=== PATIENT | female | born 1970 | race Caucasian/White ===

== ENCOUNTER → 2016-11-03 | Outpatient (CLI) | payer OTHER ==
[~2016-11-03] MED LIST: CPR500T; [UNRECOGNIZED DRUG - OTHER]
--- NOTE | 2016-11-06 19:19 | Diagnostic Imaging Report ---
EXAM: Digital mammogram screening with tomosynthesis. COMPARISON: The study was compared to the prior exams of 10/20/15, 09/07/14 and 07/04/13. At this time there are no current complaints. There are bilateral breast implants in place. The implants appear similar to the prior exam. There is no sign of an extracapsular rupture of either implant. There are scattered fibroglandular densities in both breasts which could obscure a lesion. When compared to the previous study, it is does not appear to have been any significant change. There is no primary or secondary sign of malignancy noted. The 3-D tomographic views were also unremarkable for malignancy. IMPRESSION: 1. There is no evidence of malignancy. 2. The implants appear stable. There is no sign of an extracapsular rupture of either implant. ACR BI-RADS Category 1: Negative. Result letter will be mailed to the patient. Note: At least 10% of breast cancer is not imaged by mammography. Dictated by: Dictated on workstation # [id number]
== END ==
LOC: RAD 10:35
PROVIDERS: ATTEND Nurse Practitioner
DX: Z12.31 Encounter for screening mammogram for malignant neoplasm of breast (principal)
CPT/HCPCS: 77067

== ENCOUNTER 2018-04-30 14:37 | Outpatient (CLI) | payer OTHER ==
[~2018-04-30] VITALS: Ht 172.7 cm; Wt 79.4 kg
[~2018-04-30 14:37] MED LIST changes: +AZEL23SP NS; +LEVO5TAB28 PO
== END 2018-04-30 14:42 | disposition home or self-care (01) ==
LOC: PREOP 14:37
PROVIDERS: ATTEND Surgery
DX: Z01.818 Encounter for other preprocedural examination (principal)

== ENCOUNTER 2018-05-06 07:49 | Day surgery (SDC) | payer OTHER ==
[~2018-05-06] VITALS: Ht 172.7 cm; Wt 79.4 kg
--- OUTSIDE RECORDS SUMMARY | 2018-05-06 07:53 | XMS REPORT ---
Author Author LENORA HARMON Organization [employer] Address Unknown Phone Unavailable Care Team Providers Care Brick Pitcher Name Role Phone LENORA HARMON CP Unavailable Allergies, Adverse Reactions, Alerts Substance Reaction Event Type PredniSONE (Nikko) euphoria Drug Allergy Problems Problem Type Condition Code Onset Dates Condition Status Problem Need for prophylactic vaccination and inoculation, Influenza V04.81 Active Problem Acute upper respiratory infections of unspecified site 465.9 Active Problem Acute frontal sinusitis, recurrence not specified J01.10 Active Assessment Sinusitis J32.9 Active Assessment Acute frontal sinusitis, recurrence not specified J01.10 Active Problem Cough 786.2 Active Problem Acute sinusitis, unspecified 461.9 Active Medications Medication Code System Code Instructions Start Date End Date Status Dosage Ceftin [facility] [place] [address]-86 250 MG Orally Twice a day May 06, 2015 May 16, 2015 1 tablet Procedures Procedure Coding System Code Date THER/PROPH/DIAG INJ, SC/IM CPT-4 36134 May 06, 2015 Office Visit, Est Pt., Level 4 CPT-4 16156 May 06, 2015 DEPO MEDROL 80 MG/ML CPT-4 J1040 May 06, 2015 Vital Signs Date/Time: May 06, 2015 Temperature 98.4 F Weight 169.2 lbs Height 65 in BMI 28.15 Index Blood Pressure Diastolic 80 mmHg Blood Pressure Systolic 124 mmHg Cardiac Monitoring Heart Rate 72 bpm Results No Known Results Summary Purpose [employer] Submission
--- OUTSIDE RECORDS SUMMARY | 2018-05-06 07:53 | XMS REPORT ---
Author Author LENORA HARMON [facility] [employer] Address Unknown Phone Unavailable Care Team Providers Care Cane Flume Chute Operator Name Role Phone LENORA HARMON Unavailable Allergies No Known Allergies Problems Problem Type Condition Code Onset Dates Condition Status Problem Need for prophylactic vaccination and inoculation, Influenza V04.81 Active Problem Acute upper respiratory infections of unspecified site 465.9 Active Problem Acute frontal sinusitis, recurrence not specified J01.10 Active Assessment Encounter for immunization Z23 Active Problem Cough 786.2 Active Problem Acute sinusitis, unspecified 461.9 Active Medications No Known Medications Procedures Procedure Coding System Code Date SINGLE IMMUNIZATION ADMIN CPT-4 55766 Dec 27, 2015 FLUARIX QUAD P-FREE 3 AND UP .50 2015 CPT-4 92565 Dec 27, 2015 Results No Known Results Immunizations Vaccine Administration Date FLUARIX QUAD P-FREE 3 AND UP .50 2015Dec 27, 2015 Summary Purpose [employer] Submission
--- OUTSIDE RECORDS SUMMARY | 2018-05-06 07:53 | XMS REPORT ---
Author Author LENORA HARMON Organization [employer] Address Unknown Phone Unavailable Care Team Providers Care Insole Stiffener Name Role Phone LENORA HARMON CP Unavailable Allergies No Known Allergies Problems Problem Type Condition Code Onset Dates Condition Status Problem Acute upper respiratory infections of unspecified site 465.9 Active Problem Cough 786.2 Active Problem Need for prophylactic vaccination and inoculation, Influenza V04.81 Active Problem Acute sinusitis, unspecified 461.9 Active Assessment Encounter for immunization Z23 Active Medications No Known Medications Procedures Procedure Coding System Code Date SINGLE IMMUNIZATION ADMIN CPT-4 76349 Jan 11, 2015 TDAP (BOOSTRIX) CPT-4 58871 Jan 11, 2015 Results No Known Results Immunizations Vaccine Administration Date TDAP (BOOSTRIX) Jan 11, 2015 Summary Purpose [employer]ClinicalWorks Submission
--- OUTSIDE RECORDS SUMMARY | 2018-05-06 07:53 | XMS REPORT | Continuity of Care Document ---
Author Author [facility] Address Unknown Phone Unavailable Allergies Active Description Code Type Severity Reaction Onset Reported/Identified Relationship to Patient Clinical Status Yes cortisone [id number] Drug Allergy Unknown N/A 08/03/2006 Yes hydrocortisone [id number] Drug Allergy Mild N/A 09/27/2008 Yes cortisone [id number] Drug Allergy Mild "LOOPY" 04/30/2018 Yes hydrocortisone [id number] Drug Allergy Mild MAKES HER "LOOP 04/30/2018 Medications There is no data. Problems Date Dx Coded Attending Type Code Diagnosis Diagnosed By 01/27/2012 V04.81 FLU DX (3 YRS AND ABOVE, IM) 01/27/2012 ROMIE NUNEZ DO V04.81 FLU DX (3 YRS AND ABOVE, IM) 01/27/2012 PREETIE ATOMIC WELDER, LENORA A V04.81 FLU DX (3 YRS AND ABOVE, IM) 01/27/2012 RAJOTTE ATOMIC WELDER, LENORA A V04.81 FLU DX (3 YRS AND ABOVE, IM) 09/19/2012 PRAKASH GARZA [facility] Ot 719.54 JT STIFFNESS NEC-HAND 09/19/2012 PRAKASH GARZA [employer] Ot V54.19 AFTERCARE HEALING TRAUMATIC FX OTHER BON 09/19/2012 PRAKASH GARZA MANAGER [employer] Ot V57.21 ENCOUNTER FOR OCCUPATIONAL THERAPY 01/10/2013 ANA LAURENT MD Ot V54.19 AFTERCARE HEALING TRAUMATIC FX OTHER BON 01/10/2013 ANA LAURENT MD Ot V57.21 ENCOUNTER FOR OCCUPATIONAL THERAPY 02/03/2013 RAJOTTE ATOMIC WELDER, LENORA A 465.9 UPPER RESPIRATORY INFECTION 02/03/2013 RAJOTTE ATOMIC WELDER, LENORA A 786.2 COUGH 02/03/2013 RAJOTTE ATOMIC WELDER, LENORA A 465.9 UPPER RESPIRATORY INFECTION 02/03/2013 RAJOTTE ATOMIC WELDER, LENORA A 786.2 COUGH 05/20/2013 ANA LAURENT MD Ot V57.21 ENCOUNTER FOR OCCUPATIONAL THERAPY 05/20/2013 MEHRAN SHAW, ANA Gaffney Ot V58.78 AFTERCARE POST SURGERY MUSCULOSKELETAL S 07/10/2013 MEHRAN SHAW, ANA Gaffney Ot V57.21 ENCOUNTER FOR OCCUPATIONAL THERAPY 07/10/2013 MEHRAN SHAW, ANA Gaffney Ot V58.78 AFTERCARE POST SURGERY MUSCULOSKELETAL S 09/07/2014 Ot V76.12 09/07/2014 QUICK, JOSE ALFREDO Peterson [employer]NAGER [employer] Ot V72.31 09/07/2014 QUICK, JOSE ALFREDO Peterson MANAGER MARKETING [employer]ICATION[employer] Ot V76.12 10/12/2014 Ot V76.12 10/12/2014 QUICK, JOSE ALFREDO W MANAGER MARK[employer]ICATION[employer] Ot V72.31 10/12/2014 QUICK, JOSE ALFREDO Peterson MANAGER MARKETING [employer]ICATION[employer] Ot V76.12 10/12/2014 GARZA DOEVIE C Ot V76.12 10/12/2014 GARZA DO EVIE C Ot V76.12 10/20/2015 Ot V76.12 OTH SCREEN MAMMO-MALIGN NEOPLASM OF SOTERO 10/20/2015 JOSE ALFREDO WILLIS MANAGER [employer] Ot V72.31 ROUTINE GYNECOLOGICAL EXAMINATION 10/20/2015 JOSE ALFREDO WILLIS MANAGER [employer] Ot V76.12 OTH SCREEN MAMMO-MALIGN NEOPLASM OF SOTERO 10/20/2015 GARZA DO EVIE C Ot V76.12 OTH SCREEN MAMMO-MALIGN NEOPLASM OF SOTERO 10/21/2015 JOSE ALFREDO WILLIS MANAGER MARKETING COMM[employer]ICATION[employer] Ot Z12.31 ENCNTR SCREEN MAMMOGRAM FOR MALIGNANT NE 11/03/2016 Ot V76.12 OTH SCREEN MAMMO-MALIGN NEOPLASM OF SOTERO 11/03/2016 JOSE ALFREDO WILLIS MANAGER MARK[employer]ICATION[employer] Ot V72.31 ROUTINE GYNECOLOGICAL EXAMINATION 11/03/2016 JOSE ALFREDO WILLIS MANAGER MARK[employer]ING [employer]ICATION[employer] Ot V76.12 OTH SCREEN MAMMO-MALIGN NEOPLASM OF SOTERO 11/03/2016 GARZA DOTYRONA C Ot V76.12 OTH SCREEN MAMMO-MALIGN NEOPLASM OF SOTERO 11/03/2016 JOSE ALFREDO WILLIS MANAGER MARKETING [employer]ICATION[employer] Ot Z12.31 ENCNTR SCREEN MAMMOGRAM FOR MALIGNANT NE 11/23/2017 JOSE ALFREDO WILLIS MANAGER MARK[employer]ING [employer]ICATION[employer] Ot Z12.31 ENCNTR SCREEN MAMMOGRAM FOR MALIGNANT NE 04/30/2018 MATTHEW SHAW, AMARILYS Griffin Ot Z01.818 ENCOUNTER FOR OTHER PREPROCEDURAL EXAMIN 04/30/2018 MATTHEW SHAW, AMARILYS Griffin Ot Z01.818 ENCOUNTER FOR OTHER PREPROCEDURAL EXAMIN 04/30/2018 MATTHEW SHAW, AMARILYS Griffin Ot Z01.818 ENCOUNTER FOR OTHER PREPROCEDURAL EXAMIN 04/30/2018 MATTHEW SHAW, AMARILYS Griffin Ot Z01.818 ENCOUNTER FOR OTHER PREPROCEDURAL EXAMIN 05/01/2018 MATTHEW SHAW, AMARILYS Griffin Ot Z01.818 ENCOUNTER FOR OTHER PREPROCEDURAL EXAMIN Procedures Code Description [place] [address] OXIM[employer] 02/03/2013 Results There is no data. Encounters ACCT No. Visit Date/Time Discharge Status Pt. Type Provider Facility Loc./Unit Complaint [id number] 01/19/2014 09:01:00 01/19/2014 23:59:59 CLS Outpatient LENORA HARMON APRN [id number] 02/03/2013 08:32:00 02/03/2013 23:59:59 CLS Outpatient LENORA HARMON APRN [id number] 01/11/2013 10:05:00 01/11/2013 23:59:59 [place] [id number] 01/27/2012 09:37:00 01/27/2012 23:59:59 CLS Outpatient [id number] 04/30/2018 14:37:00 04/30/2018 14:42:00 DIS Outpatient AMARILYS CASTRO MD [facility] PREOP COLONOSCOPY [id number] 11/22/2017 14:42:00 11/22/2017 23:59:59 CLS Outpatient JOSE ALFREDO WILLIS [facility] RAD SCREENING MAMMO [id number] 11/03/2016 10:35:00 11/03/2016 23:59:59 CLS Outpatient JOSE ALFREDO WILLIS [facility] RAD Z01.419 [id number] 10/20/2015 10:56:00 10/20/2015 23:59:59 CLS Outpatient JOSE ALFREDO WILLIS [facility] RAD SCREENING [id number] 09/07/2014 10:53:00 09/07/2014 23:59:59 CLS Outpatient EVIE GARZA DO [facility] RAD SCREENING [id number] 06/03/2013 15:40:00 07/10/2013 16:23:00 DIS Outpatient ANA LAURENT MD [facility] REHAB S/P R RING FINGER PIP CONTRACTURE RELEASE [id number] 07/04/2013 07:13:00 07/04/2013 23:59:59 CLS Outpatient JOSE ALFREDO WILLIS [facility] RAD SCREENING [id number] 05/20/2013 15:45:00 05/20/2013 00:01:00 DIS Outpatient ANA LAURENT MD [facility] REHAB S/P R RING FINGER PIP CONTRACTURE RELEASE [id number] 12/20/2012 14:30:00 01/10/2013 12:43:00 DIS Outpatient ANA LAURENT MD [facility] REHAB R RING FINGER METACARPAL FX W RESIDUAL STIFFNESS [id number] 08/29/2012 13:00:00 09/19/2012 10:59:00 DIS Outpatient PRAKASH GARZA [facility] REHAB R RING FINGER METACARPAL FX W RESIDUAL STIFFNESS [id number] 08/17/2012 18:08:00 08/17/2012 23:59:59 CLS Outpatient [id number] 05/06/2018 08:00:00 ZULEIMA CASTRO MD, AMARILYS Griffin [facility] ENDO DIARRHEA [id number] 04/26/2012 14:35:00 Document Registration 05/08/18 03/05/2018 07:58:05 03/05/2018 23:59:59 CLS Outpatient Daily Gaytan [facility] 09/07/2014 10:54:01 ACT Document Registration
--- OUTSIDE RECORDS SUMMARY | 2018-05-06 07:53 | XMS REPORT ---
Author Author ROMIE NUNEZ [facility] Address [address] [place] [address] Care Team Providers Care Air Quality Consultant Name Role Phone ROMIE NUNEZ Unavailable PROBLEMS Type Condition ICD9-CM Code [id number] Code Onset Dates Condition Status SNOMED Code Problem Acute frontal sinusitis, recurrence not specified J01.10 Active 92809756 Problem Acute sinusitis, unspecified 461.9 Active 90142226 Problem Need for prophylactic vaccination and inoculation, Influenza V04.81 Active 738518029 Problem Acute upper respiratory infections of unspecified site 465.9 Active 32520238 Problem Cough 786.2 Active 61779065 ALLERGIES No Information ENCOUNTERS Encounter Location Date Diagnosis [facility] [id number] [place] [address] [id number] Jan, Acute non-recurrent pansinusitis J01.40 [facility] [address] [id number] Jan, Acute recurrent maxillary sinusitis J01.01 [facility] [id number] [place] [address] [phone] [phone] Dec, Encounter for immunization Z23 [facility] [address] [id number] Dec, Encounter for immunization Z23 [facility] [id number] [place] [address] [id number] Apr, Sinusitis J32.9 and Acute frontal sinusitis, recurrence not specified J01.10 [facility] [address] [address] Dec, Encounter for immunization Z23 [facility] [id number] [place] [address] [phone] Dec, Encounter for immunization Z23 [facility] [address] [place] [address] Jun, [facility] [id number] [phone] Jun, [facility] [address] [place] [address] Apr, [facility] [id number] [place] [address] Apr, [facility] [id number] [place] [address]- [phone] Dec, [facility] [id number] [place] [address] [phone]- [address] Dec, [facility] [id number] [address] Jan, [facility] [id number] [place] [address] Jan, [facility] [address], [place] [address] Dec, [facility] [address] [place] [address] Dec, [facility] [address] [place] [address] Jan, [facility] [id number] [address] Jan, IMMUNIZATIONS Vaccine Route Administration Date Status FLUARIX QUAD (3 AND UP) 2016 IM Intramuscular Jan 15, 2017 Administered SOCIAL HISTORY Never Assessed REASON FOR VISIT flu shot JStrasserRN PLAN OF CARE VITAL SIGNS MEDICATIONS No Known Medications RESULTS No Results PROCEDURES Procedure Date Ordered Result Body Site FLUARIX QUAD (3 & UP)--2014Jan 15, 2017 SINGLE IMMUNIZATION ADMIN Jan 15, 2017 INSTRUCTIONS MEDICATIONS ADMINISTERED No Known Medications MEDICAL (GENERAL) HISTORY Type Description Date Surgical History right ring finger x2
--- OUTSIDE RECORDS SUMMARY | 2018-05-06 07:53 | XMS REPORT ---
Author Author ROMIE NUNEZ [facility] Address [address] [place] [address] Care Team Providers Care Shell Mold Bonding Machine Operator Name Role Phone ROMIE NUNEZ Unavailable PROBLEMS Type Condition ICD9-CM Code OZA40-HK Code Onset Dates Condition Status SNOMED Code Problem Acute frontal sinusitis, recurrence not specified J01.10 Active 35953461 Problem Acute sinusitis, unspecified 461.9 Active 28963600 Problem Need for prophylactic vaccination and inoculation, Influenza V04.81 Active 322815344 Problem Acute upper respiratory infections of unspecified site 465.9 Active 26295843 Problem Cough 786.2 Active 71558008 ALLERGIES No Information ENCOUNTERS Encounter Location Date Diagnosis [facility] [id number] [place] [address] [phone] Dec, Encounter for immunization Z23 [facility] [id number] [place] [address] [id number] Jan, Acute non-recurrent pansinusitis J01.40 [facility] [id number] [place] [address] [id number] Jan, Acute recurrent maxillary sinusitis J01.01 [facility] [id number] [place] [address] [phone] [phone] Dec, Encounter for immunization Z23 [facility] [id number] [place] [address] [id number] Dec, Encounter for immunization Z23 [facility] [id number] [place] [address] [id number] Apr, Sinusitis J32.9 and Acute frontal sinusitis, recurrence not specified J01.10 [facility] [id number] [place] [address] [id number]- [address]268 Dec, Encounter for immunization Z23 [facility] [address], [place] [address] Dec, Encounter for immunization Z23 [facility] [address] [address] Jun, [facility] [address], [place] [address] Jun, [facility] [address], [place] [address] Apr, [facility] [address], [place] [address] Apr, [facility] [address], [place] [address] Dec, [facility] [address], [place] [address] Dec, [facility] [address] [place] [address] Jan, [facility] [address], [place] [address] Jan, [facility] [address], [place] [address] Dec, [facility] [id number] [address] Dec, [facility] [id number], [place] [address] Jan, [facility] [id number] [address] Jan, IMMUNIZATIONS Vaccine Route Administration Date Status FLULAVAL QUAD 0.5ML (6 MO & UP) 2018 IM Intramuscular Jan 14, 2018 Administered SOCIAL HISTORY Never Assessed REASON FOR VISIT Flu shot PLAN OF CARE VITAL SIGNS MEDICATIONS Unknown Medications RESULTS No Results PROCEDURES Procedure Date Ordered Result Body Site FLULAVAL QUAD 0.5ML (6 MO AND UP) 2018 Jan 14, 2018 SINGLE IMMUNIZATION ADMIN Jan 14, 2018 INSTRUCTIONS MEDICATIONS ADMINISTERED No Known Medications MEDICAL (GENERAL) HISTORY Type Description Date Surgical History right ring finger x2
[2018-05-06] MEDS ORDERED: NS IV 500 ML 500 ML ONE (08:03)
[2018-05-06] MEDS ORDERED: NS IV 500 ML 500 ML IV PRN (08:37)
[2018-05-06 08:40] VITALS: BP 111/76
[2018-05-06] MEDS ORDERED: MIDAZOLAM 2 MG/2 ML (VERSED) VIAL IVP ONE (08:45)
[2018-05-06] MEDS ORDERED: fentaNYL INJECTION 100 MCG/2 ML AMP IVP ONE (08:45)
[2018-05-06] MEDS ORDERED: MIDAZOLAM 2 MG/2 ML (VERSED) VIAL ONE ×4 (08:49→09:58)
[2018-05-06] MEDS ORDERED: fentaNYL INJECTION 100 MCG/2 ML AMP ONE (08:50)
--- NOTE | 2018-05-06 09:38 | Conscious Sedation/ASA ---
Conscious Sedation Pre-Proced Time 09:38 ASA Score 2 For ASA 3 and 4: Consider anesthesia and medical clearance. Also, for patients with a history of failed moderate sedation consider anesthesia. Airway Lungs Heart ASA score ASA 1: a normal healthy patient ASA 2: a patient with a mild systemic disease (mid diabetes, controlled hypertension, obesity ASA 3: a patient with a severe systemic disease that limits activity (angina , COPD, prior Myocardial infarction) ASA 4: a patient with an incapacitating disease that is a constant threat to life (CHF, renal failure) ASA 5: a moribund patient not expected to survive 24 hrs. (ruptured aneurysm) ASA 6: a declared brain- patient whose organs are being harvested. For emergent operations, add the letter E after the classification Mallampati Classification Grade 1 Sedation Plan Discussed options with patient/fam The patient is an appropriate candidate to undergo the planned procedure, sedation, and anesthesia. The patient immediately re-assessed prior to indication. AMARILYS CASTRO MD May 06, 2018 09:38
--- NOTE | 2018-05-06 09:38 | History & Physicial ---
History of Present Illness History of Present Illness Reason for visit/HPI to undergo colonoscopy to investigate ongoing diarrhea Date of Admission 05/06/18 Date Seen by a Provider: May 06, 2018 Time Seen by a Provider: 09:37 I consulted on this patient on 05/06/18 09:36 Attending Physician Amarilys Bonilla MD Admitting Physician Daily Gaytan DO Consult Allergies and Home Medications Allergies Coded Allergies: cortisone (Verified Allergy, Mild, "LOOPY", 04/30/18) hydrocortisone (Unverified Allergy, Mild, MAKES HER "LOOPY", 04/30/18) Home Medications Azelastine/Fluticasone 23 Gm [place].pump, 23 GM NS BID, (Reported) Levocetirizine Dihydrochloride 5 Mg Tablet, 5 MG PO DAILY, (Reported) Patient Home Medication List Home Medication List Reviewed: Yes Past Yxhwigu-Hntpno-Xdbdzv Hx Patient Social History Alcohol Use: Denies Use Recreational Drug Use: No Smoking Status: Never a Smoker 2nd Hand Smoke Exposure: No Recent Foreign Travel: No Contact w/other who traveled: No Recent Hopitalizations: No Immunizations Up To Date Date of Influenza Vaccine: Dec 31, 2017 Seasonal Allergies Seasonal Allergies: Yes Surgeries Yes (R HAND X2) Section Respiratory No Cardiovascular No Neurological No Reproductive System Sexually Transmitted Disease: No HIV/AIDS: No Female Reproductive Disorders: Denies Genitourinary No Gastrointestinal Yes Chronic Diarrhea Musculoskeletal No Endocrine History of Endocrine Disorders: No HEENT History of HEENT Disorders: Yes (GLASSES/CONTACTS) Loss of Vision: Bilateral Hearing Impairment: Denies Cancer No Psychosocial History of Psychiatric Problem: No Integumentary History of Skin or Integumenta: No Blood Transfusions History of Blood Disorders: No Adverse Reaction to a Blood Tr: No (N/A) Review of Systems Constitutional: no symptoms reported EENTM: no symptoms reported Cardiovascular: no symptoms reported Gastrointestinal: see HPI Genitourinary: no symptoms reported Musculoskeletal: no symptoms reported Skin: no symptoms reported Psychiatric/Neurological: No Symptoms Reported Physical Exam Vital Signs Vital Signs - First Documented 05/06/18 08:40 Temp 99.1 Pulse 73 Resp 18 B/P (MAP) 111/76 (88) Pulse Ox 98 O2 Delivery Room Air Capillary Refill : Height, Weight, BMI Height: 5'8.00" Weight: 175lbs. 0.0oz. 79.505942xe; 26.6 BMI Method: General Appearance: No Apparent Distress Neck: Normal Inspection Respiratory: Lungs Clear Cardiovascular: Regular Rate, Rhythm Gastrointestinal: Non Tender, Soft Rectal: Deferred Neurologic/Psychiatric: Alert, Oriented x3 Skin: Warm/Dry Assessment/Plan Assessment and Plan lady with ongoing diarrhea. For colonoscopy. Admission Diagnosis Admission Status: Other (Outpt Proc) AMARILYS BONILLA MD May 06, 2018 09:37
--- NOTE | 2018-05-06 10:11 | Endo Procedure Record ---
Endo Procedure Report Date of Procedure Last Colonoscopy: Yes (2008) May 06, 2018 Surgeon (s) AMARILYS CASTRO MD Post Procedure/Op Diagnosis sigmoid diverticulosis Procedure Performed colonoscopy to cecum Description of Procedure Anesthesia Type: Conscious Sedation Specimen(s) collected/removed None Description of the Procedure Indication for the procedure: This lady came in for colonoscopy to evaluate long -standing, nonbloody diarrhea. She denied any relevant family history of colon cancer. Informed consent was obtained after reviewing the procedure in detail. Description of the procedure: She was placed in left lateral decubitus position and her vital signs were monitored. Conscious sedation was achieved using Versed and fentanyl. Digital rectal examination was unremarkable. The colonoscope was then introduced into the rectum and advanced all the way up to the cecum. The quality about progression wound was excellent. The scope was then withdrawn slowly and the mucosa examined in a systematic fashion. Findings: Sigmoid diverticulosis. There was no active inflammation. She tolerated it well and was taken back to the nursing area in a stable condition. Impression: Chronic diarrhea. Uncomplicated among diverticulosis. Recommend screening exam in 10 years. Copy Copies To 1: RAMO RICHARDSON XAVIER M MD May 06, 2018 10:11
--- NOTE | 2018-05-06 10:12 | Discharge Inst-Simple/Standard ---
Discharge Inst-Standard Discharge Medications New, Converted or Re-Newed RX: Other Patient Instructions/Follow Up Plan of Care/Instructions/FU: follow-up with Dr. Gaytan. Screening colonoscopy in 10 years Activity as Tolerated: Yes Discharge Diet: No Restrictions AMARILYS CASTRO MD May 06, 2018 10:12
[2018-05-06 10:25] VITALS: BP 103/59
[2018-05-06 10:55] VITALS: BP 100/57
[2018-05-06 11:03] VITALS: BP 100/57
== END 2018-05-06 11:03 | disposition home or self-care (01) ==
LOC: ENDO 07:49
PROVIDERS: ATTEND Surgery
DX: K57.30 Diverticulosis of large intestine without perforation or abscess without bleeding (principal); K52.9 Noninfective gastroenteritis and colitis, unspecified
CPT/HCPCS: 84703

== ENCOUNTER → 2018-12-11 | Outpatient (CLI) | payer OTHER ==
--- NOTE | 2018-12-11 16:20 | Diagnostic Imaging Report ---
INDICATION: Routine screening. COMPARISON: 11/22/2017 and 11/03/2016. TECHNIQUE: 2D and 3D bilateral screening mammography was performed with CAD. FINDINGS: Bilateral subpectoral breast implants are again noted. The implant contours remain smooth. Scattered fibroglandular densities in both breasts are noted. No mass or malignant appearing microcalcifications are seen. The axillae are unremarkable. IMPRESSION: No mammographic features suspicious for malignancy are identified. ACR BI-RADS Category 2: Benign findings. Result letter will be mailed to the patient. Note: At least 10% of breast cancer is not imaged by mammography. Dictated by: Dictated on workstation # [id number]
== END ==
LOC: RAD 14:52
PROVIDERS: ATTEND Obstetrics & Gynecology
DX: Z12.31 Encounter for screening mammogram for malignant neoplasm of breast (principal)
CPT/HCPCS: 77067

== ENCOUNTER 2019-04-28 12:45 | Observation (INO) | payer OTHER ==
[~2019-04-28] VITALS: Ht 170.8 cm; Wt 8.5 kg
--- NOTE | 2019-04-28 13:29 | NUR ---
Rn called into pts room by . Pts states she is getting very anxious. Vital signs taken Hr:98, BP 156/92, o2:100% on RA, rr:26. Pt very anxious and states this is how she was feeling at school.
[2019-04-28 15:56] LABS: BASOPHILS % (AUTO) 0 % (0-10); EOSINOPHILS % (AUTO) 0 % (0-10); HEMATOCRIT 38 % (35-52); LYMPHOCYTES # (AUTO) 1.5 X 10^3 (1.0-4.0); LYMPHOCYTES % (AUTO) 23 % (12-44); MEAN CORPUSCULAR HEMOGLOBIN 29 PG (25-34); MEAN CORPUSCULAR HGB CONC 34 G/DL (32-36); MEAN CORPUSCULAR VOLUME 85 FL (80-99); MEAN PLATELET VOLUME 11.5 FL (7.4-10.4); MONOCYTES # (AUTO) 0.3 X 10^3 (0.0-1.0); MONOCYTES % (AUTO) 4 % (0-12); NEUTROPHILS # (AUTO) 4.6 X 10^3 (1.8-7.8); NEUTROPHILS % (AUTO) 72 % (42-75); PLATELET COUNT 208 10^3/uL (130-400); WHITE BLOOD COUNT 6.4 10^3/uL (4.3-11.0)
[2019-04-28] MEDS ORDERED: ASPIRIN 81 MG CHEW (CHILDREN'S ASA) PO ONE (16:00)
[2019-04-28] MEDS ORDERED: NS IV 1000 ML 1,000 ML IV SCH (16:00)
--- NOTE | 2019-04-28 16:00 | ED General ---
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 Pt reported eating some crackers around 1130. pt states she "blacked out" and started having a weird tingling feeling in her chest that radiates to her left arm. States it is not chest pain just feels heavy like when an arm falls asleep. School nurse told pt that her blood pressure was high Nursing Sepsis Screen: No Definite Risk Source of Information: Patient Exam Limitations: No Limitations History of Present Illness Date Seen by Provider: Apr 28, 2019 Time Seen by Provider: 15:58 Initial Comments To ER with reports of lightheadedness, palpitations/"fluttering" in her chest that began around 10:30 this morning. Around 11:30 she ate some crackers thinking maybe she needed some food. She became very lightheaded, never completely lost consciousness but did get very lightheaded. School nurse Onsite checked her pulse and found it to be high as well as her blood pressure to be high of about 150/90. No history of this, no history of any pain, she is otherwise healthy and only takes control. Timing/Duration: 1-2 Days Severity: Moderate Allergies and Home Medications Allergies Coded Allergies: cortisone (Verified Allergy, Mild, "LOOPY", 04/30/18) hydrocortisone (Unverified Allergy, Mild, MAKES HER "LOOPY", 04/30/18) Home Medications Azelastine/Fluticasone 23 Gm [place].pump, 23 GM NS BID, (Reported) Levocetirizine Dihydrochloride 5 Mg Tablet, 5 MG PO DAILY, (Reported) Patient Home Medication List Home Medication List Reviewed: Yes Review of Systems Review of Systems Constitutional: see HPI; No chills, No fever, No malaise, No weakness EENTM: see HPI Respiratory: no symptoms reported; No cough, No dyspnea on exertion, No short of breath Cardiovascular: see HPI, palpitations, other (lightheaded) Gastrointestinal: nausea Genitourinary: no symptoms reported Musculoskeletal: no symptoms reported Skin: no symptoms reported Psychiatric/Neurological: No Symptoms Reported Past Dphzyjh-Gfzdyg-Cdimgq Hx Patient Social History Alcohol Use: Occasionally Uses Recreational Drug Use: No Smoking Status: Never a Smoker 2nd Hand Smoke Exposure: No Recent Foreign Travel: No Contact w/Someone Who Travel: No Recent Infectious Disease Expo: No Recent Hopitalizations: No Physical Abuse: No Sexual Abuse: No Immunizations Up To Date Date of Influenza Vaccine: Dec 31, 2017 Seasonal Allergies Seasonal Allergies: Yes Past Medical History Surgeries: Yes (R HAND X2) Section Respiratory: No Cardiac: No Neurological: No Female Reproductive Disorders: Denies Sexually Transmitted Disease: No HIV/AIDS: No Genitourinary: No Gastrointestinal: Yes Chronic Diarrhea Musculoskeletal: No Endocrine: No HEENT: Yes (GLASSES/CONTACTS) Loss of Vision: Bilateral Hearing Impairment: Denies Cancer: No Psychosocial: No Integumentary: No Blood Disorders: No Adverse Reaction/Blood Tranf: No (N/A) Physical Exam Vital Signs Vital Signs - First Documented 04/28/19 12:48 Temp 36.5 Pulse 86 Resp 14 B/P (MAP) 146/81 (102) Pulse Ox 100 O2 Delivery Room Air Capillary Refill : Less Than 3 Seconds Height, Weight, BMI Height: 5'8.00" Weight: 175lbs. 0.0oz. [id number]; 27.00 BMI Method: General Appearance: No Apparent Distress, WD/WN Eyes: Bilateral Eye Normal Inspection, Bilateral Eye PERRL, Bilateral Eye EOMI HEENT: PERRL/EOMI, TMs Normal Neck: Full Range of Motion, Normal Inspection Respiratory: Normal Breath Sounds, No Accessory Muscle Use, No Respiratory Distress Cardiovascular: Regular Rate, Rhythm, Normal Peripheral Pulses Gastrointestinal: Non Tender, Soft Extremity: Normal Capillary Refill, Normal Inspection Neurologic/Psychiatric: Alert, Oriented x3 Skin: Normal Color, Warm/Dry Progress/Results/Core Measures Suspected Sepsis Recent Fever Within 48 Hours: No Infection Criteria Present: None New/Unexplained Altered Menta: No Sepsis Screen: No Definite Risk SIRS Temperature: Pulse: 86 Respiratory Rate: 14 Laboratory Tests 04/28/19 13:01: White Blood Count 6.4 Blood Pressure 146 /81 Mean: 102 Laboratory Tests 04/28/19 13:01: Creatinine 0.82, INR Comment 1.0, Platelet Count 208, Total Bilirubin 0.3 Results/Orders Lab Results Laboratory Tests Test 04/28/19 13:01 Range/Units White Blood Count 6.4 4.3-11.0 10^3/uL Red Blood Count 4.51 4.35-5.85 10^6/uL Hemoglobin 13.0 11.5-16.0 G/DL Hematocrit 38 35-52 % Mean Corpuscular Volume 85 80-99 FL Mean Corpuscular Hemoglobin 29 25-34 PG Mean Corpuscular Hemoglobin Concent 34 32-36 G/DL Red Cell Distribution Width 14.0 10.0-14.5 % Platelet Count 208 130-400 10^3/uL Mean Platelet Volume 11.5 H 7.4-10.4 FL Neutrophils (%) (Auto) 72 42-75 % Lymphocytes (%) (Auto) 23 12-44 % Monocytes (%) (Auto) 4 0-12 % Eosinophils (%) (Auto) 0 0-10 % Basophils (%) (Auto) 0 0-10 % Neutrophils # (Auto) 4.6 1.8-7.8 X 10^3 Lymphocytes # (Auto) 1.5 1.0-4.0 X 10^3 Monocytes # (Auto) 0.3 0.0-1.0 X 10^3 Eosinophils # (Auto) 0.0 0.0-0.3 10^3/uL Basophils # (Auto) 0.0 0.0-0.1 10^3/uL Prothrombin Time 13.3 12.2-14.7 SEC INR Comment 1.0 0.8-1.4 Activated Partial Thromboplast Time 27 24-35 SEC D-Dimer 0.49 0.00-0.49 UG/ML Sodium Level 140 135-145 MMOL/L Potassium Level 3.5 L 3.6-5.0 MMOL/L Chloride Level 109 H 98-107 MMOL/L Carbon Dioxide Level 21 21-32 MMOL/L Anion Gap 10 5-14 MMOL/L Blood Urea Nitrogen 11 7-18 MG/DL Creatinine 0.82 0.60-1.30 MG/DL Estimat Glomerular Filtration Rate > 60 BUN/Creatinine Ratio 13 Glucose Level 124 H 70-105 MG/DL Calcium Level 9.0 8.5-10.1 MG/DL Corrected Calcium 8.8 8.5-10.1 MG/DL Magnesium Level 2.0 1.6-2.4 MG/DL Total Bilirubin 0.3 0.1-1.0 MG/DL Aspartate Amino Transf (AST/SGOT) 15 5-34 U/L Alanine Aminotransferase (ALT/SGPT) 18 0-55 U/L Alkaline Phosphatase 36 L 40-136 U/L Myoglobin 22.5 10.0-92.0 NG/ML Troponin I < 0.028 <0.028 NG/ML B-Type Natriuretic Peptide 29.6 <100.0 PG/ML Total Protein 7.0 6.4-8.2 GM/DL Albumin 4.3 3.2-4.5 GM/DL Lipase 34 8-78 U/L My Orders Orders - GINA PRADO [employer] Cbc With Automated Diff (04/28/19 15:49) Magnesium (04/28/19 15:49) Chest 1 View, Ap/Pa Only (04/28/19 15:49) Ekg Tracing (04/28/19 15:49) Comprehensive Metabolic Panel (04/28/19 15:49) Myoglobin Serum (04/28/19 15:49) Protime With Inr (04/28/19 15:49) Partial Thromboplastin Time (04/28/19 15:49) O2 (04/28/19 15:49) Monitor-Rhythm Ecg Trace Only (04/28/19 15:49) Lipid Panel (04/29/19 06:00) Ed Iv/Invasive Line Start (04/28/19 15:49) Lipase (04/28/19 15:49) BNP (04/28/19 15:49) Aspirin Chewable Tablet (Baby Aspirin Ch (04/28/19 16:00) Troponin I (04/28/19 13:01) Ns Iv 1000 Ml (Sodium Chloride 0.9%) (04/28/19 16:00) Fibrin Degradation Products (04/28/19 16:10) Medications Given in ED Current Medications Medications Dose Ordered Sig/[place] Route Start Time Stop Time Status Last Admin Dose Admin Aspirin 324 mg ONCE ONCE PO 04/28/19 16:00 04/28/19 16:01 DC 04/28/19 13:00 324 MG Vital Signs/I&O 04/28/19 12:48 Temp 36.5 Pulse 86 Resp 14 B/P (MAP) 146/81 (102) Pulse Ox 100 O2 Delivery Room Air Capillary Refill : Less Than 3 Seconds Blood Pressure Mean: 102 Departure Communication (Admissions) Time/Spoke to Admitting Phy: 16:54 Labs are unremarkable. I relayed this to the patient and family. Her symptoms strike me as anxiety however she denies feeling anxious. She still states that she doesn't feel quite right and "wouldn't trust myself to get in a car and drive" because of dizziness nausea and chest "tingling". Because she is still symptomatic safest option here would be to admit overnight for observation and have Dr. Yu consult, Dr. Gatyan further evaluate. We'll try some meclizine for the dizziness. Time/Spoke to Consulting Phy: 16:[address] hollingsworth. Impression Primary Impression: Palpitations Additional Impression: Light headedness Disposition: ADMITTED INPATIENT Condition: Stable Admissions Decision to Admit Reason: Admit from ER (General) Decision to Admit/Date: Apr 28, 2019 Time/Decision to Admit Time: 16:54 Departure-Patient Inst. Decision time for Depature: 16:25 Referrals: RAMO GAYTAN DO (PCP/Family) Primary Care Physician Patient Instructions: Palpitations (DC) Add. Discharge Instructions: 1. Call Dr. Gaytan tomorrow and make an appointment to be seen 2. Return to ER for any worsening symptoms or other concerns 3. All discharge instructions reviewed with patient and/or family. Voiced understa nding. Copy Copies To 1: RAMO GAYTAN PETER J APRN Apr 28, 2019 16:00
[2019-04-28 16:07] LABS: PROTHROMBIN TIME PATIENT 13.3 SEC (12.2-14.7)
[2019-04-28 16:10] LABS: ALANINE AMINOTRANSFERASE 18 U/L (0-55); ALBUMIN 4.3 GM/DL (3.2-4.5); ALKALINE PHOSPHATASE 36 U/L (40-136); BILIRUBIN,TOTAL 0.3 MG/DL (0.1-1.0); BUN/CREATININE RATIO 13; CARBON DIOXIDE 21 MMOL/L (21-32); CHLORIDE 109 MMOL/L (98-107); CREATININE SERUM 0.82 MG/DL (0.60-1.30); GFR ESTIMATED > 60; GLUCOSE 124 MG/DL (70-105); LIPASE 34 U/L (8-78); POTASSIUM 3.5 MMOL/L (3.6-5.0); SODIUM 140 MMOL/L (135-145)
--- NOTE | 2019-04-28 16:56 | Diagnostic Imaging Report ---
EXAMINATION: Chest, one view. HISTORY: Chest pain. COMPARISON: None available. FINDINGS: There is mild airspace opacity in the left base, which may represent atelectasis, less likely pneumonia. No pleural effusion or pneumothorax. No edema. Heart size is stable. IMPRESSION: 1. Mild airspace opacity in the left base which may represent atelectasis, less likely pneumonia. Dictated by: Dictated on workstation # [id number]
[2019-04-28 17:22] VITALS: BP 139/90
[2019-04-28 17:25] VITALS: BP 139/90
[2019-04-28] MEDS ORDERED: NORG1TAB33 (17:57)
--- NOTE | 2019-04-28 18:12 | NUR ---
MAT KAUFFMAN admitted to room 426-1, with an admitting diagnosis of CP/dizziness, on 04/28/19 from ED , accompanied by staff .MAT KAUFFMAN introduced to surroundings, call light, bed controls, phone, TV, temperature control, lights, meal times, smoking policy, visitor policy, side rail policy, bathrooms and showers. Patient Rights given to patient in the handbook. MAT KAUFFMAN verbalizes understanding that [facility] is not responsible for the loss or damage to any personal effects or valuables that are kept in the patients posession during their hospitalization. MAT KAUFFMAN verbalizes understanding of Interdisciplinary Patient Education. Patient and/or family were informed about the Rapid Response Team and its purpose.
[2019-04-28] MEDS ORDERED: ONDANSETRON 4 MG/2 ML (SDV) Z0FRAN IVP PRN (18:30)
[2019-04-28] MEDS ORDERED: MECLIZINE 25 MG (ANTIVERT) TAB PO PRN (18:30)
[2019-04-28] MEDS ORDERED: ALPRAZolam 0.5 MG (XANAX) TAB PO PRN (18:30)
[2019-04-28 20:00] VITALS: BP 114/74
[2019-04-28] MEDS: NS IV 1000 ML 1,000 ML IV ONE (22:07)
[2019-04-29] VITALS: BP 122/74
[2019-04-29] MEDS: NS IV 1000 ML 1,000 ML IV ONE (03:01)
[2019-04-29 04:00] VITALS: BP 117/78
[2019-04-29 05:02] LABS: BASOPHILS % (AUTO) 0 % (0-10); EOSINOPHILS % (AUTO) 1 % (0-10); HEMATOCRIT 37 % (35-52); HEMOGLOBIN 12.2 G/DL (11.5-16.0); LYMPHOCYTES # (AUTO) 1.8 X 10^3 (1.0-4.0); LYMPHOCYTES % (AUTO) 28 % (12-44); MEAN CORPUSCULAR HEMOGLOBIN 28 PG (25-34); MEAN CORPUSCULAR HGB CONC 33 G/DL (32-36); MEAN CORPUSCULAR VOLUME 85 FL (80-99); MONOCYTES # (AUTO) 0.4 X 10^3 (0.0-1.0); MONOCYTES % (AUTO) 7 % (0-12); NEUTROPHILS % (AUTO) 64 % (42-75); PLATELET COUNT 199 10^3/uL (130-400); WHITE BLOOD COUNT 6.2 10^3/uL (4.3-11.0)
[2019-04-29 05:21] LABS: ALANINE AMINOTRANSFERASE 17 U/L (0-55); ALBUMIN 3.9 GM/DL (3.2-4.5); ALKALINE PHOSPHATASE 33 U/L (40-136); BILIRUBIN,TOTAL 0.5 MG/DL (0.1-1.0); BUN/CREATININE RATIO 8; CALCIUM 8.2 MG/DL (8.5-10.1); CARBON DIOXIDE 21 MMOL/L (21-32); CHLORIDE 110 MMOL/L (98-107); CHOLESTEROL 167 MG/DL (< 200); CREATININE SERUM 0.76 MG/DL (0.60-1.30); GFR ESTIMATED > 60; GLUCOSE 84 MG/DL (70-105); HDL CHOLESTEROL 59 MG/DL (40-60); POTASSIUM 3.8 MMOL/L (3.6-5.0); SODIUM 139 MMOL/L (135-145); TOTAL PROTEIN 6.3 GM/DL (6.4-8.2); TRIGLYCERIDES 60 MG/DL (<150); VLDL CHOLESTEROL 12 MG/DL (5-40)
[2019-04-29 08:00] VITALS: BP 138/73
[2019-04-29 12:00] VITALS: BP 119/69
--- NOTE | 2019-04-29 12:43 | Consultation-Cardiology ---
HPI-Cardiology Cardiology Consultation Date of Consultation 04/29/19 Date of Admission Time Seen by Provider: 08:35 Indication: Palpitations, dizziness HPI Patient is a 48 y/o female with no significant PMH. 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 Went to break room to eat a snack to try to improve sx when she began having worsening dizziness and associated palpitations. Reports near syncope. Denies any chest pain. Denies any previous cardiac history. Reports school nurse assessed pt during episode and was hypertensive and tachycardic. Workup done in ER negative. Reports she is feeling better now. No other complaints at this time. Home Medications & Allergies Allergies: Coded Allergies: cortisone (Verified Allergy, Mild, "LOOPY", 04/30/18) hydrocortisone (Unverified Allergy, Mild, MAKES HER "LOOPY", 04/30/18) WYN-Mezzuz-Ngkfpa Hx Patient Social History Marital Status: Employed/Student: employed Alcohol Use: Occasionally Uses Recreational Drug Use: No Smoking Status: Never a Smoker 2nd Hand Smoke Exposure: No Recent Foreign Travel: No Recent Infectious Disease Expo: No Recent Hopitalizations: No Physical Abuse Screen: No Sexual Abuse: No Immunizations Up To Date Date of Influenza Vaccine: Dec 31, 2018 Family Medical History Significant Family History: No Pertinent Family Hx Review of Systems-General Review of Systems Constitutional: see HPI; No chills, No fever, No malaise, No weakness EENTM: see HPI Respiratory: no symptoms reported; No cough, No dyspnea on exertion, No short of breath Cardiovascular: see HPI, palpitations, other (lightheaded) Gastrointestinal: nausea Genitourinary: no symptoms reported Musculoskeletal: no symptoms reported Skin: no symptoms reported Psychiatric/Neurological: No Symptoms Reported Reviewed Test Results Reviewed Test Results Lab Laboratory Tests 04/28/19 13:01: White Blood Count 6.4, Red Blood Count 4.51, Hemoglobin 13.0, Hematocrit 38, Mean Corpuscular Volume 85, Mean Corpuscular Hemoglobin 29, Mean Corpuscular Hemoglobin Concent 34, Red Cell Distribution Width 14.0, Platelet Count 208, Mean Platelet Volume 11.5H, Neutrophils (%) (Auto) 72, Lymphocytes (%) (Auto) 23, Monocytes (%) (Auto) 4, Eosinophils (%) (Auto) 0, Basophils (%) (Auto) 0, Neutrophils # (Auto) 4.6, Lymphocytes # (Auto) 1.5, Monocytes # (Auto) 0.3, Eosinophils # (Auto) 0.0, Basophils # (Auto) 0.0, Prothrombin Time 13.3, INR Comment 1.0, Activated Partial Thromboplast Time 27, D-Dimer 0.49, Sodium Level 140, Potassium Level 3.5L, Chloride Level 109H, Carbon Dioxide Level 21, Anion Gap 10, Blood Urea Nitrogen 11, Creatinine 0.82, Estimat Glomerular Filtration Rate > 60, BUN/Creatinine Ratio 13, Glucose Level 124H, Calcium Level 9.0, Corrected Calcium 8.8, Magnesium Level 2.0, Total Bilirubin 0.3, Aspartate Amino Transf (AST/SGOT) 15, Alanine Aminotransferase (ALT/SGPT) 18, Alkaline Phosphatase 36L, Myoglobin 22.5, Troponin I < 0.028, B-Type Natriuretic Peptide 29.6, Total Protein 7.0, Albumin 4.3, Lipase 34 04/28/19 21:15: Troponin I < 0.028 04/29/19 04:55: White Blood Count 6.2, Red Blood Count 4.31L, Hemoglobin 12.2, Hematocrit 37, Mean Corpuscular Volume 85, Mean Corpuscular Hemoglobin 28, Mean Corpuscular Hemoglobin Concent 33, Red Cell Distribution Width 14.0, Platelet Count 199, Mean Platelet Volume 10.0, Neutrophils (%) (Auto) 64, Lymphocytes (%) (Auto) 28, Monocytes (%) (Auto) 7, Eosinophils (%) (Auto) 1, Basophils (%) (Auto) 0, Neutrophils # (Auto) 4.0, Lymphocytes # (Auto) 1.8, Monocytes # (Auto) 0.4, Eosinophils # (Auto) 0.0, Basophils # (Auto) 0.0, Sodium Level 139, Potassium Level 3.8, Chloride Level 110H, Carbon Dioxide Level 21, Anion Gap 8, Blood Urea Nitrogen 6L, Creatinine 0.76, Estimat Glomerular Filtration Rate > 60, BUN/Creatinine Ratio 8, Glucose Level 84, Calcium Level 8.2L, Corrected Calcium 8.3L, Total Bilirubin 0.5, Aspartate Amino Transf (AST/SGOT) 16, Alanine Aminotransferase (ALT/SGPT) 17, Alkaline Phosphatase 33L, Total Protein 6.3L, Albumin 3.9, Triglycerides Level 60, Cholesterol Level 167, LDL Cholesterol Direct 109, VLDL Cholesterol 12, HDL Cholesterol 59, Thyroid Stimulating Hormone (TSH) 1.70 ECG Impression ECG Initial ECG Rhythm: Normal Sinus Physical Exam Physical Exam Vital Signs Vital Signs - First Documented 04/28/19 12:48 Temp 36.5 Pulse 86 Resp 14 B/P (MAP) 146/81 (102) Pulse Ox 100 O2 Delivery Room Air Capillary Refill : Less Than 3 SecondsLess Than 3 Seconds Height, Weight, BMI Height: 5'8.00" Weight: 175lbs. 0.0oz. 79.282742gq; 29.13 BMI Method: General Appearance: No Apparent Distress, WD/WN Eyes: Bilateral Eye Normal Inspection, Bilateral Eye PERRL, Bilateral Eye EOMI HEENT: PERRL/EOMI, TMs Normal Neck: Full Range of Motion, Normal Inspection Respiratory: Normal Breath Sounds, No Accessory Muscle Use, No Respiratory Distress Cardiovascular: Regular Rate, Rhythm, Normal Peripheral Pulses Gastrointestinal: Non Tender, Soft Extremity: Normal Capillary Refill, Normal Inspection Neurologic/Psychiatric: Alert, Oriented x3 Skin: Normal Color, Warm/Dry A/P-Cardiology Admission Diagnosis Palpitations Dizziness/lightheadedness HTN Assessment/Plan Palpitations with associated dizziness and lightheadedness- patient reports episode lasted for approx 30-45 min. Now resolved. EKG reveals SR. Occasional rare PVC noted on telemetry. TSH WNL, 2D Echo WNL. Patient now feeling improved. Continue to monitor. Planning for 30day event monitor upon discharge. Consider stress test as outpatient. HTN- controlled, not on any medication at this time. Continue to monitor. Seasonal allergies Ok for discharge from cardiology standpoint. Planning for 30 day event monitor to be done today as outpatient. F/u in 2 weeks in our office. Thank you for allowing us to participate in the management of Mrs. Cho. This is Joya Soriano PA-C, as a scribe for Dr. Covington. Patient was seen and evaluated with Joya, examination performed, management plan was discussed, agree with the current scribed note, I made few changes to the note using Italic font Patient reporting palpitation and weakness and dizziness and near-syncope with severe hypertension tachycardia, on arrival to the emergency room heart rate was borderline tachycardic and she was hypertensive. Continue to feel lightheaded and dizzy until this morning. Reporting that she is feeling better at this point. Review of telemetry did not show any arrhythmia, examination showed clear lungs and normal heart sound Echocardiogram showed normal LV size and function Reporting that her blood pressure is usually under excellent control at home without treatment I explained the etiology of autonomic dysfunction, we'll continue to monitor her symptoms and evaluate 30 days event recorder Arrange for follow-up as an outpatient Okay for discharge from cardiology standpoint Clinical Quality Measures DVT/VTE Risk/Contraindication: Risk Factor Score Per Nursin RFS Level Per Nursing on Admit: 1=Low/No VTE PPX JOYA SMITH Apr 29, 2019 12:43 BAMBI COVINGTON MD Apr 29, 2019 13:42
[2019-04-29] MEDS ORDERED: MECL-106 PO (14:09)
[2019-04-29 15:09] VITALS: BP 119/69
--- NOTE | 2019-04-29 17:39 | Short Stay Summary ---
History of Present Illness History of Present Illness Reason for visit/HPI This is a 48 year old female who was brought to the emergency room via EMS after a near-syncopal episode. 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 She got something to eat thinking that would help but her dizziness became worse and she had associated chest flutters and discomfort with near-syncope. The school nurse assessed the patient and found her to have an elevated blood pressure and to be tachycardic. EMS was called and when the patient arrived in the emergency room her BP was 146/81 and her heart rate was 86. It was decided to admit her for further evaluation and treatment. Date of Admission Apr 28, 2019 at 16:52 Date of Discharge Apr 29, 2019 at 16:08 Time Seen by Provider: 08:45 Attending Physician Daily Gaytan DO Admitting Physician Daily Gaytan DO Consult Allergies and Home Medications Allergies Coded Allergies: cortisone (Verified Allergy, Mild, "LOOPY", 04/30/18) hydrocortisone (Unverified Allergy, Mild, MAKES HER "LOOPY", 04/30/18) Home Medications Azelastine/Fluticasone 23 Gm [place].pump, 1 SPRAY NS BID, (Reported) Levocetirizine Dihydrochloride 5 Mg Tablet, 5 MG PO HS, (Reported) Meclizine HCl 25 Mg Tablet, 25 MG PO TID PRN for DIZZINESS Prescribed by: DAILY GAYTAN on 04/29/19 1409 Norgestrel-Ethinyl Estradiol 1 Each Tablet, 1 TAB DAILY, (Reported) Patient Home Medication List Home Medication List Reviewed: Yes Past Wzaakof-Cyklwp-Ndiofz Hx Patient Social History Marrital Status: Employed/Student: employed Alcohol Use: Occasionally Uses Recreational Drug Use: No Smoking Status: Never a Smoker 2nd Hand Smoke Exposure: No Physical Abuse Screen: No Sexual Abuse: No Recent Foreign Travel: No Contact w/other who traveled: No Recent Hopitalizations: No Recent Infectious Disease Expo: No Immunizations Up To Date Date of Influenza Vaccine: Dec 31, 2018 Seasonal Allergies Seasonal Allergies: Yes Surgeries Yes (R HAND X2) Section Respiratory No Cardiovascular No Neurological No Reproductive System Sexually Transmitted Disease: No HIV/AIDS: No Female Reproductive Disorders: Denies Genitourinary No Gastrointestinal Yes Chronic Diarrhea Musculoskeletal No Endocrine History of Endocrine Disorders: No HEENT History of HEENT Disorders: Yes (GLASSES/CONTACTS) Loss of Vision: Bilateral Hearing Impairment: Denies Cancer No Psychosocial History of Psychiatric Problem: No Integumentary History of Skin or Integumenta: No Blood Transfusions History of Blood Disorders: No Adverse Reaction to a Blood Tr: No (N/A) Family Medical History Significant Family History: No Pertinent Family Hx Review of Systems Constitutional: weakness Respiratory: No no symptoms reported, No see HPI, No cough, No dyspnea on exertion, No hemoptysis, No orthopnea, No phlegm, No short of breath, No stridor, No wheezing, No other Cardiovascular: palpitations, syncope (near) Gastrointestinal: nausea Genitourinary: No no symptoms reported, No see HPI, No decreased output, No discharge, No dysuria, No frequency, No hematuria, No hesitancy, No incontinence, No nocturia, No pain, No other Musculoskeletal: muscle weakness Skin: No no symptoms reported, No see HPI, No change in color, No change in anay r/nails, No dryness, No hx of skin cancer, No lesions, No lumps, No pruritus, No rash, No other Psychiatric/Neurological: Weakness, Other (dizziness) Physical Exam Vital Signs Vital Signs - First Documented 04/28/19 12:48 Temp 36.5 Pulse 86 Resp 14 B/P (MAP) 146/81 (102) Pulse Ox 100 O2 Delivery Room Air Capillary Refill : Less Than 3 SecondsLess Than 3 Seconds Height, Weight, BMI Height: 5'8.00" Weight: 175lbs. 0.0oz. [id number]; 29.13 BMI Method: General Appearance: No Apparent Distress HEENT: Normal ENT Inspection Neck: Supple Respiratory: Lungs Clear Cardiovascular: Regular Rate, Rhythm Gastrointestinal: Normal Bowel Sounds, Non Tender, Soft Rectal: Deferred Back: No CVA Tenderness Extremity: Non Tender, No Calf Tenderness, No Pedal Edema Neurologic/Psychiatric: Alert, Oriented x3 Skin: Warm/Dry Comments Laboratory Tests 04/28/19 21:15: Troponin I < 0.028 04/29/19 04:55: White Blood Count 6.2, Red Blood Count 4.31L, Hemoglobin 12.2, Hematocrit 37, Mean Corpuscular Volume 85, Mean Corpuscular Hemoglobin 28, Mean Corpuscular Hemoglobin Concent 33, Red Cell Distribution Width 14.0, Platelet Count 199, Mean Platelet Volume 10.0, Neutrophils (%) (Auto) 64, Lymphocytes (%) (Auto) 28, Monocytes (%) (Auto) 7, Eosinophils (%) (Auto) 1, Basophils (%) (Auto) 0, Neutrophils # (Auto) 4.0, Lymphocytes # (Auto) 1.8, Monocytes # (Auto) 0.4, Eosinophils # (Auto) 0.0, Basophils # (Auto) 0.0, Sodium Level 139, Potassium Level 3.8, Chloride Level 110H, Carbon Dioxide Level 21, Anion Gap 8, Blood Urea Nitrogen 6L, Creatinine 0.76, Estimat Glomerular Filtration Rate > 60, BUN/Creatinine Ratio 8, Glucose Level 84, Calcium Level 8.2L, Corrected Calcium 8.3L, Total Bilirubin 0.5, Aspartate Amino Transf (AST/SGOT) 16, Alanine Aminotransferase (ALT/SGPT) 17, Alkaline Phosphatase 33L, Total Protein 6.3L, Albumin 3.9, Triglycerides Level 60, Cholesterol Level 167, LDL Cholesterol Direct 109, VLDL Cholesterol 12, HDL Cholesterol 59, Thyroid Stimulating Hormone (TSH) 1.70 Clinical Quality Measures DVT/VTE Risk/Contraindication: Risk Factor Score Per Nursin RFS Level Per Nursing on Admit: 1=Low/No VTE PPX Short Stay Diagnosis Discharge Diagnosis-Short Stay Final Discharge Diagnosis: 1. Dizziness with associated Nausea, Near-Syncope and Palpitations--symptoms not completely resolved but much improved 2. Hypertension--improved Conclusion Labs Laboratory Tests 04/28/19 21:15: Troponin I < 0.028 04/29/19 04:55: White Blood Count 6.2, Red Blood Count 4.31L, Hemoglobin 12.2, Hematocrit 37, Mean Corpuscular Volume 85, Mean Corpuscular Hemoglobin 28, Mean Corpuscular Hemoglobin Concent 33, Red Cell Distribution Width 14.0, Platelet Count 199, Mean Platelet Volume 10.0, Neutrophils (%) (Auto) 64, Lymphocytes (%) (Auto) 28, Monocytes (%) (Auto) 7, Eosinophils (%) (Auto) 1, Basophils (%) (Auto) 0, Neutrophils # (Auto) 4.0, Lymphocytes # (Auto) 1.8, Monocytes # (Auto) 0.4, Eosinophils # (Auto) 0.0, Basophils # (Auto) 0.0, Sodium Level 139, Potassium Level 3.8, Chloride Level 110H, Carbon Dioxide Level 21, Anion Gap 8, Blood Urea Nitrogen 6L, Creatinine 0.76, Estimat Glomerular Filtration Rate > 60, BUN/Creatinine Ratio 8, Glucose Level 84, Calcium Level 8.2L, Corrected Calcium 8.3L, Total Bilirubin 0.5, Aspartate Amino Transf (AST/SGOT) 16, Alanine Aminotransferase (ALT/SGPT) 17, Alkaline Phosphatase 33L, Total Protein 6.3L, A lbumin 3.9, Triglycerides Level 60, Cholesterol Level 167, LDL Cholesterol Direct 109, VLDL Cholesterol 12, HDL Cholesterol 59, Thyroid Stimulating Hormone (TSH) 1.70 Conclusion/Plan The patient was admitted to the medical floor and monitored on telemetry. She remained in a normal sinus rhythm with an occasional PVC. Her repeat cardiac enzymes were negative and her ECHO was normal. Her dizziness improved as well as her nausea. It was decided she could be discharged home on an event monitor. She will see me in 1 week and see cardiology in 2 weeks. DAILY GAYTAN DO Apr 29, 2019 17:39
== END 2019-04-29 16:08 | disposition home or self-care (01) ==
LOC: EDUNIT# 12:45 → ER 12:46 → 4TH 16:52
PROVIDERS: ADMIT Family Medicine; ATTEND Family Medicine
DX: R00.2 Palpitations (principal); R55 Syncope and collapse; I10 Essential (primary) hypertension; K59.09 Other constipation; J30.9 Allergic rhinitis, unspecified; Z88.8 Allergy status to other drugs, medicaments and biological substances; Z79.899 Other long term (current) drug therapy
CPT/HCPCS: 36415; 71045; 80053; 80061; 83690; 83735; 83874; 83880; 84443; 84484; 85025; 85379; 85610; 85730; 93005; 93041; 93306; G0378

== ENCOUNTER 2019-04-29 14:59 | Outpatient (RCR) | payer OTHER ==
[~2019-04-29 14:59] MED LIST changes: +MECL-149 PO; +NORG1TAB33
== END 2019-07-28 | disposition home or self-care (01) ==
LOC: CARD 14:59
PROVIDERS: ATTEND Physician Assistant
DX: R00.2 Palpitations (principal)

== ENCOUNTER → 2019-09-01 | Outpatient (CLI) | payer OTHER ==
[2019-09-02 17:19] VITALS: BP 119/87
--- NOTE | 2019-09-02 17:20 | Cardiology Stress Test Report ---
Stress Test Report Date of Procedure/Referring: Date of Procedure: Sep 01, 2019 PCP Joya Mejia Admitting Physician Daily Gaytan DO Indications: Palpitation Baseline Heart Rate: 68 Baseline Blood Pressure: Blood Pressure Systolic: 119 Blood Pressure Diastolic: 87 Baseline EKG: Baseline EKG: normal sinus rhythm Summary/Conclusion: Summary: In summary, the patient started exercising with a baseline heart rate, blood pressure and EKG mentioned above Patient was able to exercise for a total of 8 minutes on Eder protocol, 9.7 METs Maximum heart rate 161 Maximum blood pressure 160/89 Stress EKG Minimal nondiagnostic changes Recovery EKG Return to baseline Conclusion: 1. Good exercise tolerance for a total of 8 minutes on Eder protocol, 9.7 METs, achieving 93 percent of maximum expected heart rate 2. Minimal nondiagnostic EKG changes with exercise returned to baseline during recovery 3. No arrhythmia was noted BAMBI HALL MD Sep 02, 2019 17:19
== END ==
LOC: CARD 10:05
PROVIDERS: ATTEND Physician Assistant
DX: R00.2 Palpitations (principal); R42 Dizziness and giddiness; R07.89 Other chest pain
CPT/HCPCS: 93017

== ENCOUNTER → 2019-12-29 | Outpatient (CLI) | payer OTHER ==
--- NOTE | 2019-12-30 12:55 | Diagnostic Imaging Report ---
INDICATION: Routine screening. COMPARISON: 12/11/2018 and 11/22/2017. TECHNIQUE: 2D and 3D bilateral screening mammography was performed with CAD. FINDINGS: Bilateral subpectoral breast implants are again noted. The implant contours remain smooth. Scattered fibroglandular densities throughout both breasts are noted. No mass or malignant appearing microcalcifications are seen. The axillae are unremarkable. IMPRESSION: No mammographic features suspicious for malignancy are identified. ACR BI-RADS Category 2: Benign findings. Result letter will be mailed to the patient. Note: At least 10% of breast cancer is not imaged by mammography. Dictated by: Dictated on workstation # [id number]
== END ==
LOC: RAD 15:00
PROVIDERS: ATTEND Nurse Practitioner Women's Health
DX: Z12.31 Encounter for screening mammogram for malignant neoplasm of breast (principal); Z98.82 Breast implant status
CPT/HCPCS: 77063; 77067

== ENCOUNTER → 2021-01-14 | Outpatient (CLI) | payer OTHER ==
--- NOTE | 2021-01-14 17:48 | Diagnostic Imaging Report ---
INDICATION: Routine screening. COMPARISON: Prior mammograms from 08/13/2019 and 12/11/2018. EXAMINATION: 2D and 3D bilateral screening mammography was performed with CAD. The current study was also evaluated with a Computer Aided Detection (CAD) system. FINDINGS: Bilateral subpectoral breast implants are again noted. Implant contours remain smooth. Scattered fibroglandular densities are identified in both breasts. The parenchymal pattern is stable. No mass or malignant-appearing microcalcifications are seen. Axillae are unremarkable. IMPRESSION: No mammographic features suspicious for malignancy are identified. ACR BI-RADS Category 2: Benign findings. Result letter will be mailed to the patient. Note: At least 10% of breast cancer is not imaged by mammography. Dictated by: Dictated on workstation # [id number]
== END ==
LOC: RAD 14:45
PROVIDERS: ATTEND Obstetrics & Gynecology
DX: Z12.31 Encounter for screening mammogram for malignant neoplasm of breast (principal)
CPT/HCPCS: 77063; 77067

== ENCOUNTER → 2021-06-16 | Outpatient (CLI) | payer OTHER | LOC: PREOP 05:34 | PROVIDERS: ATTEND Internal Medicine | DX: Z01.818 Encounter for other preprocedural examination (principal) ==

== ENCOUNTER 2021-06-24 08:20 | Day surgery (SDC) | payer OTHER ==
--- NOTE | 2021-06-15 19:31 | HISTORY AND PHYSICAL ---
DATE OF SERVICE: EGD HISTORY AND PHYSICAL HISTORY: The patient is a 51-year-old white female being referred for consideration for EGD evaluation. She reports that she has had increased problems of burning sensation in the lower precordial area in addition to epigastric pain. She has a lot of pressure with this as well. She reports coughing which wakes her up at night. She denies aspirin or nonsteroidal medication usage and has had no past history of peptic ulcer disease that she is aware of. She has put on 20 pounds of weight that she feels is hormonal related as she is in the perimenopausal. She has started to eat smaller amounts and reports fewer nighttime symptoms when eating an evening meal at 4:30 and nothing afterwards. She has been able to lose 6 pounds of the 25 that she reports she is put on over the past year in the last month, but has not noticed any benefit to her reflux symptoms as of yet. She is not aware of any family history for malignancy. She did undergo colonoscopy for evaluation of diarrhea in [address] Bonilla, at which time, diverticulosis without evidence for diverticulitis was noted and no inflammatory change was noted in the colon. She denies dysphagia, melena or bright red bood per rectum. PAST SURGICAL HISTORY: She reports breast surgery/implants in 2012. She had a in 2006. PAST MEDICAL HISTORY: Significant for seasonal allergies and she had some adult-onset acne that she has been taking spironolactone for with benefit 25 mg daily. Denying any problems with hypertension. FAMILY HISTORY: She is not aware of any family history for GI tract malignancy. Father was diagnosed with prostate cancer, being managed conservatively and a history of hypertension. Mother living in her 70s with hypertension. SOCIAL HISTORY: She is with no past smoking or significant alcohol intake. REVIEW OF SYSTEMS: CONSTITUTIONAL: Denies night sweats, chills, fever. Due to change in lifestyle, recent 6-pound weight loss after 25-pound weight gain over the past year. GASTROINTESTINAL: As noted in the HPI. PULMONARY: Denies cough, wheezing or shortness of breath. CARDIOVASCULAR: Denies chest pain, orthopnea, PND, pedal edema, or syncope. PHYSICAL EXAMINATION: GENERAL: Reveals a pleasant white female, in no acute distress. VITAL SIGNS: Weight 199 pounds, blood pressure 110/70. HEENT: Unremarkable. Sclerae nonicteric. CHEST: Clear to auscultation. CARDIOVASCULAR: Reveals regular rate and rhythm without murmur, S3 or S4. ABDOMEN: Soft, supple without mass or organomegaly. Bowel sounds positive. Epigastric pain to palpation without rebound or guarding. Some mild left lower quadrant discomfort to palpation as well. EXTREMITIES: Reveal no cyanosis, clubbing or edema. ASSESSMENT: For further investigation of epigastric pain and gastroesophageal reflux sounding symptoms, the patient is being set up for EGD evaluation. Electronic medical record was reviewed and instructions discussed. The patient commended for a positive lifestyle change. Discussed the importance specifically in regards to reflux. I thank you for the referral of this pleasant lady. Job ID: [id number] DocumentID: [id number] Dictated Date: 06/06/2021 16:07:49 It Teacher Date: 06/06/2021 17:07:01 Dictated By: JYA KRAMER MD MTDD
[~2021-06-24] VITALS: Ht 173 cm; Wt 90.5 kg
[~2021-06-24 08:20] MED LIST changes: +PANT40TA52 PO; +SPIR25TA5 PO
[2021-06-24] MEDS ORDERED: LACTATED RINGERS 1,000 ML IV ONE (08:23)
[2021-06-24] MEDS ORDERED: LACTATED RINGERS 1,000 ML IV STA (08:36)
[2021-06-24 08:40] VITALS: BP 114/77
[2021-06-24] MEDS ORDERED: LIDOCAINE JELLY 2% 6 ML SYRINGE MM PRN (08:45)
[2021-06-24] MEDS ORDERED: HURRICAINE EXT TUBE (BENZOCAINE) XX PRN (08:45)
[2021-06-24] MEDS ORDERED: MIDAZOLAM 2 MG/2 ML (VERSED) VIAL ONE (09:24)
[2021-06-24] MEDS ORDERED: proPOfol 200 MG/20 ML (DIPRIVAN) VIAL IV ONE (09:25)
[2021-06-24 09:44] VITALS: BP 84/46
[2021-06-24 09:50] VITALS: BP 84/55
[2021-06-24 10:20] VITALS: BP 108/71
[2021-06-24 10:24] VITALS: BP 108/71
--- NOTE | 2021-06-24 13:22 | OPERATIVE REPORT ---
DATE OF SERVICE: COLONOSCOPY SUMMARY INDICATION FOR THE PROCEDURE: Epigastric pain with reflux sounding symptoms. DESCRIPTION OF PROCEDURE: The patient was placed in the left lateral decubitus position. The endoscope was inserted into the oral cavity and under direct visualization, the esophagus was intubated. The endoscope was passed down the esophagus through stomach and second portion of the duodenum. Careful inspection was made as the endoscope was withdrawn. FINDINGS: The posterior pharynx, epiglottis, arytenoid aperture and true and false vocal folds were unremarkable to gross inspection. The proximal, mid and distal esophagus were unremarkable except for a small finger-like projection of columnar appearing mucosa extended up about 2 cm from the Z-line. There was no evidence for erosive esophagitis, but evidence of compatible sphincter laxity and a small sliding hiatal hernia. No other abnormalities were appreciated. The cardia of the stomach was unremarkable. One small 3 mm fundal polyp was noted in the fundus. The antrum, pylorus, pyloric channel, duodenal bulb and second portion of duodenum were unremarkable to gross inspection. Biopsies were obtained to rule out Ojeda's from the GE junction x2. ASSESSMENT: The patient had evidence compatible sphincter laxity and a small sliding hiatal hernia without evidence for erosive esophagitis. Questionable short segment Ojeda's noted, biopsies pending. If Ojeda's is not present, would not advocate future surveillance procedures unless indicated by worsening symptoms. I did discuss non-medication issues in regards to reflux management and advise continued proton pump inhibitor therapy with antacid tablets for breakthrough symptoms. I thank you for the referral of this pleasant lady. Job ID: [id number] DocumentID: [id number] Dictated Date: 06/24/2021 09:50:20 Clerk Carrier Date: 06/24/2021 13:21:32 Dictated By: JAY KRAMER MD
--- NOTE | 2021-06-24 13:49 | Anesthesia-General Post-Op ---
MAC Patient Condition Mental Status/LOC: Same as Preop Cardiovascular: Satisfactory Nausea/Vomiting: Absent Respiratory: Satisfactory Pain: Controlled Complications: Absent Post Op Complications Complications None Follow Up Care/Instructions Patient Instructions None needed. Anesthesiology Discharge Order Discharge Order Patient is doing well, no complaints, stable vital signs, no apparent adverse anesthesia problems. No complications reported per nursing. BRIANNE JEFFERSON CRNA Jun 24, 2021 13:49
== END 2021-06-24 10:27 | disposition home or self-care (01) ==
LOC: ENDO 08:20
PROVIDERS: ATTEND Internal Medicine
DX: K21.00 Gastro-esophageal reflux disease with esophagitis, without bleeding (principal); K44.9 Diaphragmatic hernia without obstruction or gangrene; K29.70 Gastritis, unspecified, without bleeding; Z79.899 Other long term (current) drug therapy
CPT/HCPCS: 84703